=== PATIENT | male | born 1960 | race Caucasian/White ===

== ENCOUNTER 2022-07-03 15:19 | Inpatient (IN) | payer MEDICARE, OTHER, SELFPAY ==
--- NOTE | ~2022-07-03 | US_ITS ---
EXAMINATION: US ABDOMEN LIMITED CLINICAL INFORMATION: Right upper quadrant pain. COMPARISON: None available. TECHNIQUE: Real-time imaging of the right upper quadrant abdominal viscera. FINDINGS: PANCREAS: Not visualized due to shadowing from overlying bowel gas. LIVER: Cirrhotic liver. There is a 0.6 cm simple cyst in the right hepatic lobe. No other discrete focal liver lesion. No significant intrahepatic biliary ductal dilatation. GALLBLADDER: Cholecystectomy. COMMON BILE DUCT: Mildly dilated measuring up to 0.7 cm, nonspecific given patient's age and post cholecystectomy state. RIGHT KIDNEY: There is a 0.5 cm nonobstructive calculus in the mid pole. No hydronephrosis or focal parenchymal lesions. The kidney measures 12 cm in maximum dimension. FREE FLUID: Moderate volume of ascites. US/US abdomen limited IMPRESSION: 1. Cirrhotic liver with moderate volume of ascites. 2. Nonobstructive 0.5 cm calculus in the mid pole of the right kidney. 3. Status post cholecystectomy.
--- NOTE | ~2022-07-03 | CT_ITS ---
EXAMINATION: CT CHEST, ABDOMEN AND PELVIS WITH CONTRAST CLINICAL INFORMATION: Shortness of breath, abdominal distention and jaundice COMPARISON: No pertinent prior studies are available for comparison. TECHNIQUE: Multidetector volumetric imaging was performed from the thoracic inlet through the pubic symphysis following administration of 85 mL of Omnipaque 350. Sagittal and coronal reformatted images were obtained on the technologist's workstation. This CT examination was performed using dose optimization techniques as appropriate, variously including the following: *Automated exposure control *Adjustment of mA and/or kV according to patient size (this includes techniques or standardized protocols for targeted exams where dose is matched to indication/reason for exam; i.e. extremities or head) *Use of iterative reconstruction technique DLP: 966 mGy-cm FINDINGS: CHEST: Lung: There is a cluster of groundglass opacity is seen in the right upper lobe the largest measuring 1.8 cm in greatest length with another adjacent opacity measuring about 0.8 cm. The lungs are otherwise clear aside from some right basilar atelectasis. Mediastinum: The mediastinum is unremarkable. Some small mediastinal lymph nodes are present the largest measuring 0.8 cm in short axis dimension. There is a single posterior paracardiac node present measuring 1.7 x 0.8 x 0.8 cm. A 0.6 cm short axis left anterior paracardiac lymph node is present. The central vascular structures are unremarkable. No hilar or mediastinal lymphadenopathy. Pericardium/Pleura: No significant effusion. No pleural mass or thickening. Chest Wall/Axilla: There is mild gynecomastia. No axillary adenopathy. ABDOMEN/PELVIS: Peritoneal Space: Moderate ascites is noted throughout the abdomen. There is stranding seen in the mesentery and omentum without discrete masses. Fluid is present in the retroperitoneum as well with a small amount around the pancreas. Fluid is present in the paracolic gutters. Liver, Gallbladder, Biliary Tree: Liver is cirrhotic in appearance with a nodular border. A few subcentimeter benign hepatic cysts are present. No suspicious liver masses or bile duct dilatation is seen. Status post cholecystectomy. Pancreas: Unremarkable Spleen: Spleen is enlarged at 14.3 cm. Adrenal Glands: Unremarkable Kidneys and Ureters: The kidneys are normal in size, shape, and attenuation. Bilateral nephrolithiasis is present with 2 calculi present in the right kidney measuring 5 and 2 mm. A single left-sided calculus present 8 mm. The latter calculus measures 860 Hounsfield units and is 10 cm from the posterior axillary line. No hydronephrosis, hydroureter, or ureteral calculi seen. There is a tiny subcentimeter hypodensity seen at the lower pole of the left kidney likely a benign Bosniak class I cyst. No need for additional imaging or follow-up.. Bladder: Unremarkable Gastrointestinal Tract: Colonic diverticula are present but there is no definitive evidence of diverticulitis. Assessment is difficult because of the surrounding fluid and some inflammatory change in the retroperitoneal fat. No bowel obstruction. The appendix is not seen with certainty but there is no evidence of appendicitis appendicitis.. Abdominal Wall: No significant hernia is appreciated. Lymph Nodes: No retroperitoneal lymphadenopathy. Vascular: The aorta appears normal.. The IVC appears unremarkable. No large varices are seen. There is recanalization of a tiny periumbilical vein. There is some tiny serpiginous venous structures seen surrounding the midportion of the inferior mesenteric vein. Some small perirectal varices are present. PELVIC VISCERA: The prostate and seminal vesicles are unremarkable. OSSEUS STRUCTURES: Mild degenerative changes are noted in the spine. There is mild grade 1 retrolisthesis of L5 upon S1. No bony destructive lesions are seen. CT/CT abdomen pelvis w IV con IMPRESSION: 1. There is a cluster of groundglass opacities in the right upper lobe. These could be infectious or inflammatory. 2. Cirrhotic-appearing liver with associated splenomegaly and moderate ascites. 3. Bilateral nephrolithiasis. 4. Colonic diverticulosis without diverticulitis. 5. Other incidental findings as described above. Fleischner guidelines were followed.
[2022-07-03 15:21] VITALS: BP 104/58; PULSE 94; RESP 18; TEMP 35.8; O2SAT 97; BMI 26.7
--- NOTE | 2022-07-03 15:23 | ED.GENADULT ---
HPI - General Adult General Chief complaint: Recheck/Abnormal Lab/Rx <YRN Hairston - Last Filed: 07/03/22 15:26> Stated complaint: Abnormal labs <YRN Hairston - Last Filed: 07/03/22 15:26> Time Seen by Provider: 07/03/22 16:04 <YRN Hairston - Last Filed: 07/03/22 15:26> Source: patient <YRN Crowell - Last Filed: 07/03/22 19:10> Mode of arrival: ambulatory <YRN Crowell - Last Filed: 07/03/22 19:10> Limitations: no limitations <YRN Crowell Last Filed: 07/03/22 19:10> History of Present Illness HPI narrative: This is a 62-year-old male history of cirrhosis, jaundice, presenting to the emergency department with fatigue, malaise, patient is also coming in for abnormal labs according to patient he had labs done on Wednesday which resulted today which showed a low hemoglobin and hematocrit per his PCP. He was advised to come in for a blood transfusion. His hemoglobin was 7.7 hematocrit 24. 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 He tells me he stopped drinking 2 weeks ago, prior to this he is drinking from 10-16 beers per day. He also mentions that his abdomen has been more distended than usual and he has been having dark black stools darker than usual. Patient does take iron transfusion so he is unsure if his stool is dark because of this. Patient reporting some shortness of breath at rest and with exertion but he also is reporting a dry cough. Denies chest pain, fevers, chills, nausea, vomiting, abdominal pain, headache, vision changes, dizziness and weakness. <YRN Crowell - Last Filed: 07/03/22 19:10> Related Data Home medications: Home Medications Medication Instructions Recorded Confirmed ferrous sulfate 325 mg (65 mg 325 mg PO DAILY 07/03/22 07/03/22 iron) tablet folic acid 1 mg tablet 1 mg PO DAILY 07/03/22 07/03/22 levofloxacin 500 mg tablet 500 mg PO DAILY 07/03/22 07/03/22 metronidazole 500 mg tablet 500 mg PO Q8H 07/03/22 07/03/22 multivitamin 1 tab PO DAILY 07/03/22 07/03/22 pantoprazole 40 mg tablet,delayed 40 mg PO Q12H 07/03/22 07/03/22 release polyethylene glycol 3350 17 17 g PO DAILY 07/03/22 07/03/22 gram/dose oral powder (ClearLax) pyridoxine (vitamin B6) 50 mg 50 mg PO DAILY 07/03/22 07/03/22 tablet sennosides 8.6 mg-docusate sodium 1 tab-cap PO BID PRN Constipation 07/03/22 07/03/22 50 mg tablet sitagliptin phosphate 50 mg tablet 50 mg PO DAILY 07/03/22 07/03/22 (Januvia) sucralfate 1 gram tablet 1 g PO TID 07/03/22 07/03/22 thiamine HCl (vitamin B1) 100 mg 100 mg PO DAILY 07/03/22 07/03/22 tablet <YRN Hairston - Last Filed: 07/03/22 15:26> Allergies/adverse reactions: Allergies Allergy/AdvReac Type Severity Reaction Status Date / Time No Known Allergies Allergy Verified 07/03/22 15:25 <YRN Hairston - Last Filed: 07/03/22 15:26> Review of Systems Review of Systems: Constitutional : No Weight loss, No Fever, No Chills, + Fatigue, + Malaise ENT/Mouth : No sore throat, No Rhinorrhea Eyes: No Eye Pain, No Swelling, No Redness Cardiovascular : No Chest Pain, No SOB, No Dyspnea on Exertion, No Orthopnea, No Edema, No Palpitations Respiratory : + Cough, No Sputum, No Wheezing Gastrointestinal : No Nausea, No Vomiting, No Diarrhea, No Constipation, No abdominal Pain, No Hematochezia, + Melena, + abdominal distention Genitourinary : No Dysuria, No Urinary Frequency, No Hematuria, Musculoskeletal : No joint pain, No Myalgias, No Joint Swelling Skin : No Skin Lesions, No rash Neuro : No Weakness, No Numbness, No Dizziness, No Headache Psych : No Anxiety/Panic, No Depression Heme/Lymph: No Bruising, No Bleeding,No Lymphadenopathy Endocrine : No Polyuria, No Polydipsia All other systems reviewed and are negative <YRN Crowell Last Filed: 07/03/22 19:10> Yes all other systems are reviewed and are negative <YRN Crowell Last Filed: 07/03/22 19:10> [facility]LY [facility] Social History Social History: Social History Advance Directives: No Advance Directives Information Provided: No <YRN Hairston Last Filed: 07/03/22 15:26> Physical Exam ED Vital Signs: Vital Signs - 24 hr 07/03/22 15:21 Temperature 96.4 F L Pulse Rate 94 Respiratory Rate 18 Blood Pressure 104/58 L Pulse Oximetry 97 Oxygen Delivery Method Room Air BMI result Body Mass Index 26.7 <YRN Hairston Last Filed: 07/03/22 15:26> Vital Signs - 24 hr 07/03/22 15:21 Temperature 96.4 F L Pulse Rate 94 Respiratory Rate 18 Blood Pressure 104/58 L Pulse Oximetry 97 Oxygen Delivery Method Room Air BMI result Body Mass Index 26.7 Patient is noted to be slightly hypotensive likely secondary to acute blood loss <YRN Crowell Last Filed: 07/03/22 19:10> Appearance: Alert.? Oriented X3.? No acute distress.? Head: Normocephalic, atraumatic, no step-offs or deformities Eyes: Pupils equal, round and reactive to light.? Bilateral sclera icteric ENT: Pharynx normal.? Neck: Normal inspection.? Neck supple.? CVS: Normal heart rate and rhythm.? Pulses normal.? Respiratory: No respiratory distress.? Breath sounds normal.? Abdomen: Soft and nontender. Evidently distended abdomen appears to have ascites? Skin: Skin warm and dry.? Jaundiced skin throughout..? Normal skin turgor.? Extremities: No lower extremity edema.? No calf ttp. 5/5 strength to bilateral upper and lower extremities Back: No midline tenderness, no C-spine tenderness, full range of motion, no CVA tenderness bilaterally Neuro: Oriented X 3.? No motor deficit.? No sensory deficit. CN 2-12 intact <YRN Crowell Last Filed: 07/03/22 19:10> Course Course Course Narrative: RME performed by Gala Ribera PA-C. Patient is a 62 year old assigned male at presenting to the emergency department with a low hgb and worsening cirrhosis. Patient's hgb 7.7 with a hct of 24. Patient has not seen a GI specialist for his cirrhosis yet. Patient obviously jaundice. Labs ordered. Patient placed back in the waiting room pending room availability and results. <YRN Hairston - Last Filed: 07/03/22 15:26> Reevaluation(s) Reevaluation #1: Patient's CBC with a hemoglobin of 7.6, hematocrit 23.3, noted to have a macrocytic anemia likely secondary to chronic alcohol abuse, patient having symptomatic anemia an active bleeding will transfuse with 1 unit of packed red blood. Patient's platelets are 80. Chemistry with elevated glucose 388 will receive IV fluids. Total bilirubin, and transaminases elevated as well. I do not have previous values to compare with. Ammonia 88, lactulose ordered. OBS positive, consistent with acute lower GI bleed. Patient also noted to be COVID positive. Patient's ultrasound of the abdomen with cirrhotic liver with moderate volume of ascites, patient does not have abdominal tenderness unlikely SBP. CT of chest, abdomen and pelvis pending. Plan is for hospital admission. <YRN Crowell - Last Filed: 07/03/22 19:10> Time: 19:04 <YRN Crowell - Last Filed: 07/03/22 19:10> Reevaluation #2: Hospitalist aware of pending CT scans. Plan for admission. <YRN Crowell - Last Filed: 07/03/22 19:10> Medications Administered Discontinued Medications Generic Name Dose Route Start Last Admin Trade Name Freq PRN Reason Stop Dose Admin Iohexol 100 ml 07/03/22 18:12 07/03/22 18:14 Iohexol 350 Mg/Ml 100 Ml Infus..Btl IV 07/03/22 18:13 85 ml ONCE ONE Administration Lactulose 20 gm 07/03/22 17:54 07/03/22 18:47 Lactulose 20 Gm/30 Ml Solution PO 07/03/22 17:55 20 gm ONCE ONE Administration <YRN Hairston - Last Filed: 07/03/22 15:26> Medications Administered Discontinued Medications Generic Name Dose Route Start Last Admin Trade Name Freq PRN Reason Stop Dose Admin Iohexol 100 ml 07/03/22 18:12 07/03/22 18:14 Iohexol 350 Mg/Ml 100 Ml Infus..Btl IV 07/03/22 18:13 85 ml ONCE ONE Administration Lactulose 20 gm 07/03/22 17:54 07/03/22 18:47 Lactulose 20 Gm/30 Ml Solution PO 07/03/22 17:55 20 gm ONCE ONE Administration <YRN Crowell Last Filed: 07/03/22 19:10> Medical Decision Making Medical Decision Making [facility] Narrative: 1615 62-year-old male presents with abnormal labs with low hemoglobin hematocrit per PCP also reporting fatigue, malaise, dry cough, shortness of breath times a few weeks worsening Physical exam patient has regular rate and rhythm, lungs are clear, abdomen soft, evidently distended appears to have some ascites, normoactive bowel sounds. Diffuse jaundice from head to toe, sclerae icteric Patient's fatigue, malaise and shortness of breath or likely secondary to acute blood loss anemia. Will rule out lower GI bleed. Patient at high risk for lower GI bleed as he is cirrhotic. Jaundice likely secondary to cirrhosis. I do not suspect CHF, acute abdomen, SBP, mi, PE. Will rule out dehydration and electrolyte abnormalities. Hypotension likely secondary to acute blood loss/anemia on likely from sepsis. Plan labs, imaging, x-ray, OBS <YRN Crowell Last Filed: 07/03/22 19:10> Differential Diagnosis Differential Diagnoses: The differential diagnosis associated with the presentation includes <YRN Crowell Last Filed: 07/03/22 19:10> Patient's fatigue, malaise and shortness of breath or likely secondary to acute blood loss anemia. Will rule out lower GI bleed. Patient at high risk for lower GI bleed as he is cirrhotic. Jaundice likely secondary to cirrhosis. I do not suspect CHF, acute abdomen, SBP, mi, PE. Will rule out dehydration and electrolyte abnormalities. Hypotension likely secondary to acute blood loss/anemia on likely from sepsis. <YRN Crowell Last Filed: 07/03/22 19:10> Admission/Observation Consideration of admission/observation: Escalation of care including admission/observation considered <YRN Crowell Last Filed: 07/03/22 19:10> nayely <YRN Crowell - Last Filed: 07/03/22 19:10> Lab Data MDM Lab Attestation statement: I reviewed the patient's lab results. <YRN Crowell - Last Filed: 07/03/22 19:10> Result Diagrams: 07/03/22 16:08 07/03/22 16:49 <YRN Hairston - Last Filed: 07/03/22 15:26> Labs: Lab Results 07/03/22 07/03/22 07/03/22 Range/Units 15:56 15:57 16:08 WBC 5.4 (4.8-10.8) X10*3/uL RBC 2.14 L (4.60-5.80) X10*6/uL Hgb 7.6 L (14.0-18.0) g/dl Hct 23.3 L (42.0-52.0) % MCV 108.9 H (80.0-98.0) fL MCH 35.5 H (27.0-33.0) pg MCHC 32.6 (31.0-36.0) g/dl RDW 27.1 H (11.0-16.0) % Plt Count 80 L (160-400) X10*3/uL MPV 10.6 (9.4-12.4) fL Immature Gran % (Auto) 0.6 H (0.0-0.4) % Neut % (Auto) 47.2 (45-73) % Lymph % (Auto) 37.4 (20-40) % Tucker % (Auto) 10.6 (2-11) % Eos % (Auto) 3.3 (0-4) % Baso % (Auto) 0.9 (0-2) % Lymph # (Auto) 2.0 (1.2-4.9) X10*3/uL Tucker # (Auto) 0.6 (0.1-1.2) X10*3/uL Eos # (Auto) 0.2 (0.0-0.4) X10*3/uL Baso # (Auto) 0.1 (0.0-0.2) X10*3/uL Abs Immat Gran (auto) 0.03 (0.00-0.03) X10*3/uL Absolute Neuts (auto) 2.5 (2.0-8.3) x10*3/uL Absolute Nucleated RBC 0.000 (0.0-0.012) X10*3/uL Nucleated RBC % (auto) 0.0 (0.0-0.2) /100WBC PT (10.0-13.1) SEC INR (0.9-1.1) APTT (26.0-36.4) SEC Sodium (135-145) mmol/L Potassium (3.3-5.1) mmol/L Chloride (96-108) mmol/L Carbon Dioxide (22-29) mmol/L Anion Gap (12-20) BUN (9-16) mg/dL Creatinine (0.5-1.4) mg/dL Estim Creat Clear Calc Estimated GFR Random Glucose (60-115) mg/dL Calcium (8.4-10.2) mg/dL Magnesium (1.6-2.6) mg/dL Total Bilirubin (0.0-1.0) mg/dL AST (5-37) U/L ALT (0-40) U/L Alkaline Phosphatase (39-117) U/L Ammonia 88 H (13-55) umol/L Total Protein (6.5-8.0) g/dL Albumin (3.5-5.0) g/dL Stool Occult Blood (NEGATIVE) COVID-19 (HAROLDO) (Negative) COVID-19 Clin [facility] Blood Type O Positive Antibody Screen NEGATIVE 07/03/22 07/03/22 07/03/22 Range/Units 16:49 16:49 16:49 WBC (4.8-10.8) X10*3/uL RBC (4.60-5.80) X10*6/uL Hgb (14.0-18.0) g/dl Hct (42.0-52.0) % MCV (80.0-98.0) fL MCH (27.0-33.0) pg MCHC (31.0-36.0) g/dl RDW (11.0-16.0) % Plt Count (160-400) X10*3/uL MPV (9.4-12.4) fL Immature Gran % (Auto) (0.0-0.4) % Neut % (Auto) (45-73) % Lymph % (Auto) (20-40) % Tucker % (Auto) (2-11) % Eos % (Auto) (0-4) % Baso % (Auto) (0-2) % Lymph # (Auto) (1.2-4.9) X10*3/uL Tucker # (Auto) (0.1-1.2) X10*3/uL Eos # (Auto) (0.0-0.4) X10*3/uL Baso # (Auto) (0.0-0.2) X10*3/uL Abs Immat Gran (auto) (0.00-0.03) X10*3/uL Absolute Neuts (auto) (2.0-8.3) x10*3/uL Absolute Nucleated RBC (0.0-0.012) X10*3/uL Nucleated RBC % (auto) (0.0-0.2) /100WBC PT 20.3 H (10.0-13.1) SEC INR 1.7 H (0.9-1.1) APTT 36.0 (26.0-36.4) SEC Sodium 137 (135-145) mmol/L Potassium 3.7 (3.3-5.1) mmol/L Chloride 106 (96-108) mmol/L Carbon Dioxide 23 (22-29) mmol/L Anion Gap 12 (12-20) BUN 12 (9-16) mg/dL Creatinine 0.84 (0.5-1.4) mg/dL Estim Creat Clear Calc 88.8 Estimated GFR > 60 Random Glucose 388 H* (60-115) mg/dL Calcium 8.5 (8.4-10.2) mg/dL Magnesium 1.9 (1.6-2.6) mg/dL Total Bilirubin 9.5 H (0.0-1.0) mg/dL AST 86 H (5-37) U/L ALT 43 H (0-40) U/L Alkaline Phosphatase 93 (39-117) U/L Ammonia (13-55) umol/L Total Protein 6.9 (6.5-8.0) g/dL Albumin 2.4 L (3.5-5.0) g/dL Stool Occult Blood (NEGATIVE) COVID-19 (HAROLDO) Positive A (Negative) COVID-19 Clin Com See Note Blood Type Antibody Screen 07/03/22 Range/Units 18:00 WBC (4.8-10.8) X10*3/uL RBC (4.60-5.80) X10*6/uL Hgb (14.0-18.0) g/dl Hct (42.0-52.0) % MCV (80.0-98.0) fL MCH (27.0-33.0) pg MCHC (31.0-36.0) g/dl RDW (11.0-16.0) % Plt Count (160-400) X10*3/uL MPV (9.4-12.4) fL Immature Gran % (Auto) (0.0-0.4) % Neut % (Auto) (45-73) % Lymph % (Auto) (20-40) % Tucker % (Auto) (2-11) % Eos % (Auto) (0-4) % Baso % (Auto) (0-2) % Lymph # (Auto) (1.2-4.9) X10*3/uL Tucker # (Auto) (0.1-1.2) X10*3/uL Eos # (Auto) (0.0-0.4) X10*3/uL Baso # (Auto) (0.0-0.2) X10*3/uL Abs Immat Gran (auto) (0.00-0.03) X10*3/uL Absolute Neuts (auto) (2.0-8.3) x10*3/uL Absolute Nucleated RBC (0.0-0.012) X10*3/uL Nucleated RBC % (auto) (0.0-0.2) /100WBC PT (10.0-13.1) SEC INR (0.9-1.1) APTT (26.0-36.4) SEC Sodium (135-145) mmol/L Potassium (3.3-5.1) mmol/L Chloride (96-108) mmol/L Carbon Dioxide (22-29) mmol/L Anion Gap (12-20) BUN (9-16) mg/dL Creatinine (0.5-1.4) mg/dL Estim Creat Clear Calc Estimated GFR Random Glucose (60-115) mg/dL Calcium (8.4-10.2) mg/dL Magnesium (1.6-2.6) mg/dL Total Bilirubin (0.0-1.0) mg/dL AST (5-37) U/L ALT (0-40) U/L Alkaline Phosphatase (39-117) U/L Ammonia (13-55) umol/L Total Protein (6.5-8.0) g/dL Albumin (3.5-5.0) g/dL Stool Occult Blood POSITIVE (NEGATIVE) COVID-19 (HAROLDO) (Negative) COVID-19 Clin Com Blood Type Antibody Screen <YRN Hairston - Last Filed: 07/03/22 15:26> Lab Results 07/03/22 07/03/22 07/03/22 Range/Units 15:56 15:57 16:08 WBC 5.4 (4.8-10.8) X10*3/uL RBC 2.14 L (4.60-5.80) X10*6/uL Hgb 7.6 L (14.0-18.0) g/dl Hct 23.3 L (42.0-52.0) % MCV 108.9 H (80.0-98.0) fL MCH 35.5 H (27.0-33.0) pg MCHC 32.6 (31.0-36.0) g/dl RDW 27.1 H (11.0-16.0) % Plt Count 80 L (160-400) X10*3/uL MPV 10.6 (9.4-12.4) fL Immature Gran % (Auto) 0.6 H (0.0-0.4) % Neut % (Auto) 47.2 (45-73) % Lymph % (Auto) 37.4 (20-40) % Tucker % (Auto) 10.6 (2-11) % Eos % (Auto) 3.3 (0-4) % Baso % (Auto) 0.9 (0-2) % Lymph # (Auto) 2.0 (1.2-4.9) X10*3/uL Tucker # (Auto) 0.6 (0.1-1.2) X10*3/uL Eos # (Auto) 0.2 (0.0-0.4) X10*3/uL Baso # (Auto) 0.1 (0.0-0.2) X10*3/uL Abs Immat Gran (auto) 0.03 (0.00-0.03) X10*3/uL Absolute Neuts (auto) 2.5 (2.0-8.3) x10*3/uL Absolute Nucleated RBC 0.000 (0.0-0.012) X10*3/uL Nucleated RBC % (auto) 0.0 (0.0-0.2) /100WBC PT (10.0-13.1) SEC INR (0.9-1.1) APTT (26.0-36.4) SEC Sodium (135-145) mmol/L Potassium (3.3-5.1) mmol/L Chloride (96-108) mmol/L Carbon Dioxide (22-29) mmol/L Anion Gap (12-20) BUN (9-16) mg/dL Creatinine (0.5-1.4) mg/dL Estim Creat Clear Calc Estimated GFR Random Glucose (60-115) mg/dL Calcium (8.4-10.2) mg/dL Magnesium (1.6-2.6) mg/dL Total Bilirubin (0.0-1.0) mg/dL AST (5-37) U/L ALT (0-40) U/L Alkaline Phosphatase (39-117) U/L Ammonia 88 H (13-55) umol/L Total Protein (6.5-8.0) g/dL Albumin (3.5-5.0) g/dL Stool Occult Blood (NEGATIVE) COVID-19 (HAROLDO) (Negative) COVID-19 Clin Com Blood Type O Positive Antibody Screen NEGATIVE 07/03/22 07/03/22 07/03/22 Range/Units 16:49 16:49 16:49 WBC (4.8-10.8) X10*3/uL RBC (4.60-5.80) X10*6/uL Hgb (14.0-18.0) g/dl Hct (42.0-52.0) % MCV (80.0-98.0) fL MCH (27.0-33.0) pg MCHC (31.0-36.0) g/dl RDW (11.0-16.0) % Plt Count (160-400) X10*3/uL MPV (9.4-12.4) fL Immature Gran % (Auto) (0.0-0.4) % Neut % (Auto) (45-73) % Lymph % (Auto) (20-40) % Tucker % (Auto) (2-11) % Eos % (Auto) (0-4) % Baso % (Auto) (0-2) % Lymph # (Auto) (1.2-4.9) X10*3/uL Tucker # (Auto) (0.1-1.2) X10*3/uL Eos # (Auto) (0.0-0.4) X10*3/uL Baso # (Auto) (0.0-0.2) X10*3/uL Abs Immat Gran (auto) (0.00-0.03) X10*3/uL Absolute Neuts (auto) (2.0-8.3) x10*3/uL Absolute Nucleated RBC (0.0-0.012) X10*3/uL Nucleated RBC % (auto) (0.0-0.2) /100WBC PT 20.3 H (10.0-13.1) SEC INR 1.7 H (0.9-1.1) APTT 36.0 (26.0-36.4) SEC Sodium 137 (135-145) mmol/L Potassium 3.7 (3.3-5.1) mmol/L Chloride 106 (96-108) mmol/L Carbon Dioxide 23 (22-29) mmol/L Anion Gap 12 (12-20) BUN 12 (9-16) mg/dL Creatinine 0.84 (0.5-1.4) mg/dL Estim Creat Clear Calc 88.8 Estimated GFR > 60 Random Glucose 388 H* (60-115) mg/dL Calcium 8.5 (8.4-10.2) mg/dL Magnesium 1.9 (1.6-2.6) mg/dL Total Bilirubin 9.5 H (0.0-1.0) mg/dL AST 86 H (5-37) U/L ALT 43 H (0-40) U/L Alkaline Phosphatase 93 (39-117) U/L Ammonia (13-55) umol/L Total Protein 6.9 (6.5-8.0) g/dL Albumin 2.4 L (3.5-5.0) g/dL Stool Occult Blood (NEGATIVE) COVID-19 (HAROLDO) Positive A (Negative) COVID-19 Clin Com See Note Blood Type Antibody Screen 07/03/22 Range/Units 18:00 WBC (4.8-10.8) X10*3/uL RBC (4.60-5.80) X10*6/uL Hgb (14.0-18.0) g/dl Hct (42.0-52.0) % MCV (80.0-98.0) fL MCH (27.0-33.0) pg MCHC (31.0-36.0) g/dl RDW (11.0-16.0) % Plt Count (160-400) X10*3/uL MPV (9.4-12.4) fL Immature Gran % (Auto) (0.0-0.4) % Neut % (Auto) (45-73) % Lymph % (Auto) (20-40) % Tucker % (Auto) (2-11) % Eos % (Auto) (0-4) % Baso % (Auto) (0-2) % Lymph # (Auto) (1.2-4.9) X10*3/uL Tucker # (Auto) (0.1-1.2) X10*3/uL Eos # (Auto) (0.0-0.4) X10*3/uL Baso # (Auto) (0.0-0.2) X10*3/uL Abs Immat Gran (auto) (0.00-0.03) X10*3/uL Absolute Neuts (auto) (2.0-8.3) x10*3/uL Absolute Nucleated RBC (0.0-0.012) X10*3/uL Nucleated RBC % (auto) (0.0-0.2) /100WBC PT (10.0-13.1) SEC INR (0.9-1.1) APTT (26.0-36.4) SEC Sodium (135-145) mmol/L Potassium (3.3-5.1) mmol/L Chloride (96-108) mmol/L Carbon Dioxide (22-29) mmol/L Anion Gap (12-20) BUN (9-16) mg/dL Creatinine (0.5-1.4) mg/dL Estim Creat Clear Calc Estimated GFR Random Glucose (60-115) mg/dL Calcium (8.4-10.2) mg/dL Magnesium (1.6-2.6) mg/dL Total Bilirubin (0.0-1.0) mg/dL AST (5-37) U/L ALT (0-40) U/L Alkaline Phosphatase (39-117) U/L Ammonia (13-55) umol/L Total Protein (6.5-8.0) g/dL Albumin (3.5-5.0) g/dL Stool Occult Blood POSITIVE (NEGATIVE) COVID-19 (HAROLDO) (Negative) COVID-19 Clin Com Blood Type Antibody Screen <YRN Crowell - Last Filed: 07/03/22 19:10> Independent Interpretation I performed an independent interpretation of an: Plain X-Ray and CT Scan <YRN Crowell - Last Filed: 07/03/22 19:10> Radiology Impression Discussion of test interpretation with radiology: I have reviewed the radiologist's reading. <YRN Crowell Last Filed: 07/03/22 19:10> External Record Review External record reviewed: Inpatient record, Office record, Outpatient record, Prior outpatient labs, Prior outpatient radiology, Primary care record and Outside ED record <YRN Crowell Last Filed: 07/03/22 19:10> Core Measures AMI core measures followed: Yes <YRN Crowell Last Filed: 07/03/22 19:10> Measure exclusions: not indicated <YRN Crowell Last Filed: 07/03/22 19:10> Critical Care Time Critical Care Time Critical Care Time: Yes <YRN Crowell Last Filed: 07/03/22 19:10> Total Critical Care Time: 45 <YRN Crowell - Last Filed: 07/03/22 19:10> Attestation: I attest to this time spent taking care of the patient, obtaining history, physical, reviewing labs, imaging, speaking to my attending, speaking to specialist. <YRN Crowell - Last Filed: 07/03/22 19:10> Discharge Plan Discharge Clinical Impression: Cirrhosis of liver, Ascites, Anemia, Acute lower GI bleeding <YRN Hairston - Last Filed: 07/03/22 15:26> Patient Disposition: Admitted As Inpatient <YRN Hairston - Last Filed: 07/03/22 15:26>
[2022-07-03 16:21] LABS: Ammonia 88 umol/L (13-55)
[2022-07-03 16:21] LABS: MANUAL DIFF FLAG NO
[2022-07-03 16:26] LABS: Basophils Absolute Auto 0.1 X10*3/uL (0.0-0.2); Basophils Percent Auto 0.9 % (0-2); Eosinophils Absolute Auto 0.2 X10*3/uL (0.0-0.4); Eosinophils Percent Auto 3.3 % (0-4); Hematocrit 23.3 % (42.0-52.0); Hemoglobin 7.6 g/dl (14.0-18.0); Imm Gran Abs Auto 0.03 X10*3/uL (0.00-0.03); Imm Gran Pct Auto 0.6 % (0.0-0.4); Lymphocytes Percent Auto 37.4 % (20-40); Mean Corpuscular HGB Conc 32.6 g/dl (31.0-36.0); Mean Corpuscular Hemoglobin 35.5 pg (27.0-33.0); Mean Corpuscular Volume 108.9 fL (80.0-98.0); Mean Platelet Volume 10.6 fL (9.4-12.4); Monocytes Absolute Auto 0.6 X10*3/uL (0.1-1.2); Monocytes Percent Auto 10.6 % (2-11); Neutrophils Absolute Auto 2.5 x10*3/uL (2.0-8.3); Neutrophils Percent Auto 47.2 % (45-73); Red Blood Count 2.14 X10*6/uL (4.60-5.80); Red Cell Distribution Width 27.1 % (11.0-16.0); White Blood Count 5.4 X10*3/uL (4.8-10.8)
[2022-07-03 16:46] LABS: Platelet Count 80 X10*3/uL (160-400)
[2022-07-03 17:04] LABS: INTERNATIONAL NORM RATIO 1.7 (0.9-1.1); Prothrombin Time 20.3 SEC (10.0-13.1)
[2022-07-03 17:12] LABS: COVID-19 Test Positive (Negative); IDNOW Serial# 6674DD1D
[2022-07-03 17:25] LABS: Alanine Aminotransferase 43 U/L (0-40); Albumin Level 2.4 g/dL (3.5-5.0); Alkaline Phosphatase 93 U/L (39-117); Anion Gap 12 (12-20); Aspartate Amino Transferase 86 U/L (5-37); Bilirubin Total 9.5 mg/dL (0.0-1.0); Blood Urea Nitrogen 12 mg/dL (9-16); Calcium 8.5 mg/dL (8.4-10.2); Carbon Dioxide 23 mmol/L (22-29); Chloride 106 mmol/L (96-108); Creatinine Clr Calc Pharmacy 88.8; Estimated Glomerular Filt Rate > 60; Glucose Random 388 mg/dL (60-115); Magnesium 1.9 mg/dL (1.6-2.6); Potassium 3.7 mmol/L (3.3-5.1); Sodium 137 mmol/L (135-145); Total Protein 6.9 g/dL (6.5-8.0)
--- NOTE | 2022-07-03 17:55 | PHA.MEDREC ---
Pharmacy Consult ? Medication Reconciliation Pharmacy has completed the medication reconciliation. Patients had a list.
[2022-07-03] MEDS: iohexoL 350 MG/ML 100 ML INFUS..BTL IV (18:14)
[2022-07-03 18:19] LABS: OBS Int Ctl Valid YES; OBS1 POSITIVE (NEGATIVE)
[2022-07-03] MEDS: Lactulose 20 GM/30 ML SOLUTION PO ×2 (18:47→20:45)
--- NOTE | 2022-07-03 19:24 | PM.IMHP ---
History of Present Illness Date of Service: 07/03/22 Attending physician on admission: Merna Hernandez Chief Complaint: Anemia Pt is a 62-year-old male with a PMH significant for?cirrhosis, jaundice, and alcohol use disorder who presents to the ED after labs drawn by PCP showed anemia and need for blood transfusion. Patient states that symptoms began approximately 3 weeks ago when he went to [place] to visit friends. Patient has been a chronic heavy drinker for many years, drinking 10-15 beers daily. In [place] notes he drink even more, hitting up the [email or web address] bars. Said felt off the last two days, weak and fatigued, spent most of the time in his hotel room. Went to see his PCP upon getting home, and was sent via ambulance to [facility] for jaundice. Pt says he stayed at [facility] for five days and was diagnosed with cirrhosis, transfused two units of PRBC, had an EGD which cauterized some bleeding ulcers, and had fluid drawn off his liver. Pt had apparently been experiencing bright red blood per rectum for up to 6 months prior which he thought was due to hemorrhoids, even though he had never had a formal diagnosis. Patient has also been experiencing dark stools, though he is on iron supplementation and has not experienced any bright red blood since the procedure at [facility]. Pt also developed a cough two days after leaving [facility]. In the ED patient was hypotensive at 104/58. Labs were significant for macrocytic anemia of 7.6/23.3, MCV 108.9, platelets of 80, PTT of 20.3, INR of 1.7, random glucose of 388, total bilirubin of 9.5, AST of 86, ALT 43, ammonia 88. Stools positive for occult blood. Patient tested positive for COVID-19. Abdominal ultrasound showed cirrhotic liver with moderate volume of ascites and nonobstructive 0.5 cm calculus in the right kidney. CT of chest, abdomen, and pelvis showed a cluster of ground-glass opacities in the right upper lobe that could be infectious or inflammatory, a cirrhotic appearing liver with associated splenomegaly and moderate ascites, bilateral nephrolithiasis, and colonic diverticulosis without diverticulitis. Pt was treated with lactulose, thiamine, and IVF. Pt will be admitted to the hospital for treatment of hepatic encephalopathy, acute decompensated cirrhosis, and acute GI bleed. [facility] Social History Advance Directives: No Advance Directives Information Provided: No Meds Allergies Allergy/AdvReac Type Severity Reaction Status Date / Time No Known Allergies Allergy Verified 07/03/22 15:25 Active Medications: Current Medications Benzonatate (Benzonatate 100 Mg Capsule) 200 mg PO TID PRN PRN Reason: cough Glucose (Glucose Gel 15 Gm Gel..Gram.) 15 gm PO Q15M PRN; Protocol PRN Reason: per Hypoglycemia Standing Ord. Sodium Chloride (Ns) 1,000 mls @ 999 mls/hr IV .Q1H1M SABAS Stop: 07/03/22 20:15 Dextrose (D10) 250 mls @ 750 mls/hr IV Q15M PRN; Protocol PRN Reason: per Hypoglycemia Standing Ord. Insulin Human Lispro (Insulin Lispro 100 Unit/Ml 3 Ml Vial) 0 unit SUBCUT Q6H [facility]; Protocol Lactulose (Lactulose 20 Gm/30 Ml Solution) 20 gm PO BID [facility] Melatonin (Melatonin 3 Mg Tablet) 6 mg PO BEDTIME PRN PRN Reason: Insomnia Ondansetron HCl (Ondansetron Hcl 4 Mg/2 Ml Vial) 4 mg IVPUSH Q8H PRN PRN Reason: Nausea and Vomiting Pharmacy Consult (Consult Rx Perform Med Rec) 1 each MISCELLANE ONCE PRN PRN Reason: Consult order Sodium Chloride (0.9 % Sodium Chloride Flush 3 Ml Syringe) 3 ml IVFLUSH QSHIFT [facility] Home Medications Medication Instructions Recorded Confirmed Last Taken Type ferrous sulfate 325 mg (65 mg 325 mg PO DAILY 07/03/22 07/03/22 Unknown History iron) tablet folic acid 1 mg tablet 1 mg PO DAILY 07/03/22 07/03/22 Unknown History levofloxacin 500 mg tablet 500 mg PO DAILY 07/03/22 07/03/22 Unknown History metronidazole 500 mg tablet 500 mg PO Q8H 07/03/22 07/03/22 Unknown History multivitamin 1 tab PO DAILY 07/03/22 07/03/22 Unknown History pantoprazole 40 mg tablet,delayed 40 mg PO Q12H 07/03/22 07/03/22 Unknown History release polyethylene glycol 3350 17 17 g PO DAILY 07/03/22 07/03/22 Unknown History gram/dose oral powder (ClearLax) pyridoxine (vitamin B6) 50 mg 50 mg PO DAILY 07/03/22 07/03/22 Unknown History tablet sennosides 8.6 mg-docusate sodium 1 tab-cap PO BID PRN Constipation 07/03/22 07/03/22 Unknown History 50 mg tablet sitagliptin phosphate 50 mg tablet 50 mg PO DAILY 07/03/22 07/03/22 Unknown History (Januvia) sucralfate 1 gram tablet 1 g PO TID 07/03/22 07/03/22 Unknown History thiamine HCl (vitamin B1) 100 mg 100 mg PO DAILY 07/03/22 07/03/22 Unknown History tablet Physical Exam Vital Signs and Narrative: Vital Signs: Last Vital Signs Temp 96.4 F L 07/03/22 15:21 Pulse 94 07/03/22 15:21 Resp 18 07/03/22 15:21 BP 104/58 L 07/03/22 15:21 Pulse Ox 97 07/03/22 15:21 O2 Del Method Room Air 07/03/22 15:21 BMI result Body Mass Index 26.7 Constitutional: Alert, in no acute distress. Mental Status: Oriented to person, place and time. Eyes: Pupils are equal, round, and reactive to light. Sclera icteric. Ear, Nose, and Throat: Oropharynx clear, mucous membranes moist. Ears and nose without deformities. Trachea midline. Respiratory: Clear to auscultation bilaterally. No wheezing, rales, or rhonchi. Cardiovascular: S1, S2 regular. No murmurs, rubs, or gallops. Gastrointestinal: Abdomen soft, non-tender, moderately rigid and distended. Normal bowel sounds. Neurologic: Cranial nerves II-XII are grossly intact bilaterally. No focal neurological deficits. Moves all extremities spontaneously. Skin: Patient would notable jaundice. Extremities: 1+ pitting edema of lower extremities bilaterally. Psychiatric: Normal mood and affect. Results Labs 07/03/22 16:08 07/03/22 16:49 Labs: Laboratory Results - last 24 hr 07/03/22 07/03/22 07/03/22 15:56 15:57 16:08 MCV 108.9 H MCH 35.5 H MCHC 32.6 RDW 27.1 H Plt Count 80 L MPV 10.6 Immature Gran % (Auto) 0.6 H Neut % (Auto) 47.2 Lymph % (Auto) 37.4 [place] % (Auto) 10.6 Eos % (Auto) 3.3 Baso % (Auto) 0.9 Lymph # (Auto) 2.0 [place] # (Auto) 0.6 Eos # (Auto) 0.2 Baso # (Auto) 0.1 Abs Immat Gran (auto) 0.03 Absolute Neuts (auto) 2.5 Absolute Nucleated RBC 0.000 Nucleated RBC % (auto) 0.0 PT INR APTT Anion Gap Estim Creat Clear Calc Estimated GFR Random Glucose Calcium Magnesium Total Bilirubin AST ALT Alkaline Phosphatase Ammonia 88 H Total Protein Albumin Stool Occult Blood COVID-19 (HAROLDO) COVID-[employer] Blood Type O Positive Antibody Screen NEGATIVE Crossmatch See Detail 07/03/22 07/03/22 07/03/22 16:49 16:49 16:49 MCV MCH MCHC RDW Plt Count MPV Immature Gran % (Auto) Neut % (Auto) Lymph % (Auto) [place] % (Auto) Eos % (Auto) Baso % (Auto) Lymph # (Auto) [place] # (Auto) Eos # (Auto) Baso # (Auto) Abs Immat Gran (auto) Absolute Neuts (auto) Absolute Nucleated RBC Nucleated RBC % (auto) PT 20.3 H INR 1.7 H APTT 36.0 Anion Gap 12 Estim Creat Clear Calc 88.8 Estimated GFR > 60 Random Glucose 388 H* Calcium 8.5 Magnesium 1.9 Total Bilirubin 9.5 H AST 86 H ALT 43 H Alkaline Phosphatase 93 Ammonia Total Protein 6.9 Albumin 2.4 L Stool Occult Blood COVID-19 (HAROLDO) Positive A COVID-19 [employer] See Note Blood Type Antibody Screen Crossmatch 07/03/22 18:00 MCV MCH MCHC RDW Plt Count MPV Immature Gran % (Auto) Neut % (Auto) Lymph % (Auto) [place] % (Auto) Eos % (Auto) Baso % (Auto) Lymph # (Auto) [place] # (Auto) Eos # (Auto) Baso # (Auto) Abs Immat Gran (auto) Absolute Neuts (auto) Absolute Nucleated RBC Nucleated RBC % (auto) PT INR APTT Anion Gap Estim Creat Clear Calc Estimated GFR Random Glucose Calcium Magnesium Total Bilirubin AST ALT Alkaline Phosphatase Ammonia Total Protein Albumin Stool Occult Blood POSITIVE COVID-19 (HAROLDO) COVID-[employer] Blood Type Antibody Screen Crossmatch Imaging Radiologist's Impressions: Impressions Abdomen Ultrasound 07/03/22 18:34 IMPRESSION: 1. Cirrhotic liver with moderate volume of ascites. 2. Nonobstructive 0.5 cm calculus in the mid pole of the right kidney. 3. Status post cholecystectomy. Abdomen/Pelvis CT 07/03/22 18:39 IMPRESSION: 1. There is a cluster of groundglass opacities in the right upper lobe. These could be infectious or inflammatory. 2. Cirrhotic-appearing liver with associated splenomegaly and moderate ascites. 3. Bilateral nephrolithiasis. 4. Colonic diverticulosis without diverticulitis. 5. Other incidental findings as described above. Fleischner guidelines were followed. Chest CT 07/03/22 18:39 IMPRESSION: 1. There is a cluster of groundglass opacities in the right upper lobe. These could be infectious or inflammatory. 2. Cirrhotic-appearing liver with associated splenomegaly and moderate ascites. 3. Bilateral nephrolithiasis. 4. Colonic diverticulosis without diverticulitis. 5. Other incidental findings as described above. Fleischner guidelines were followed. Assessment and Plan (1) Ascites: Status: Acute (2) Anemia: Status: Acute (3) GI bleed: Status: Acute (4) Cirrhosis of liver: Status: Acute Plan Pt is a 62-year-old male with a PMH significant for?cirrhosis, jaundice, and alcohol use disorder who presents to the ED after labs drawn by PCP showed anemia and need for blood transfusion. Pt will be admitted to the hospital for treatment of hepatic encephalopathy, acute decompensated cirrhosis, and acute GI bleed. Acute GI bleed with symptomatic anemia Pt's H&H 7.6 or 23.3, stool positive for occult blood, ?melena IV Protonix Clear liquid diet for now, NPO after midnight in anticipation of possible procedure tomorrow a.m. GI consult Acute decompensated chirrosis Patient with jaundice, elevated bilirubin, AST, & ALT, ascites, 1+ pitting lower leg edema bilaterally Likely secondary to chronic alcohol abuse Thiamine, folic acid, multivitamin Ultrasound-guided paracentesis GI consult Patient strongly encouraged to keep abstaining from alcohol Hepatic encephalopathy Patient's ammonia 88 at time of presentation Likely secondary to GI bleed Lactulose 20 gm po bid with goal of 2-3 bowel movements per day Repeat ammonia in the a.m. COVID Pt tested positive for COVID CT of chest with clustered ground-glass opacities in the right upper lobe Patient largely asymptomatic: Occasional nonproductive cough, no shortness of breath, lungs CTA Treat asymptomatically Benzonatate for cough Admit with contact and airborne precautions Zrk-svmqyft-gioyorvld diabetes Patient's random glucose 388 at time of presentation Continue Jorden POTTS Full Code Attending:?Dr. Hernandez DVT Prophylaxis: Pneumatic boots Pt will require a hospitalization of at least two nights for treatment of?hepatic encephalopathy, decompensated cirrhosis, and acute GI bleed . Time Spent With Patient Time: Total time managing care of this patient today ____ minutes. Quality Stroke Does the patient have a stroke diagnosis?: No VTE Prior VTE?: No VTE Risk Level:: Medical - moderate - high VTE Device Contraindication: N/A - Device Ordered VTE Drug Contraindication: Treatment Not Indicated
--- NOTE | 2022-07-03 19:50 | PC.NURSE ---
Pt ambulatory with standby assist to restroom. Bowel movement x1.
[2022-07-03 19:55] VITALS: BP 112/70; PULSE 89; RESP 17; O2SAT 97
[2022-07-03 19:58] VITALS: BP 122/70; PULSE 90; RESP 17; TEMP 36.6
--- NOTE | 2022-07-03 20:01 | PC.NURSE ---
Blood transfusion initiated at this time
[2022-07-03] MEDS: Thiamine HCL 100 MG in 0.9 % Sodium Chloride 100 ML 202 MG IV (20:07)
[2022-07-03] MEDS: 0.9 % Sodium Chloride 1,000 ML 999 ML IV (20:08)
[2022-07-03 20:16] VITALS: BP 117/63; PULSE 89; RESP 19; TEMP 36.8
--- NOTE | 2022-07-03 20:16 | PC.NURSE ---
Pt tolerating blood transfusion well. VSS.
[2022-07-03] MEDS: Sucralfate 1 GM TABLET PO (20:45)
[2022-07-03 20:49] LABS: Folate 14.4 ng/mL (> or = 4.0)
--- NOTE | 2022-07-03 20:58 | PC.NURSE ---
Pt continues to tolerate blood transfusion well. VSS.
[2022-07-03 21:10] VITALS: BP 139/78; PULSE 86; RESP 17; TEMP 36.7
--- NOTE | 2022-07-03 21:33 | PC.NURSE ---
Blood transfusion completed at this time. Pt ambulatory to restroom with steady gait. Relates having bowel movement.
--- NOTE | 2022-07-03 22:07 | PC.NURSE ---
Pt ambulatory to restroom for bowel movement at this time.
[2022-07-03] MEDS: Pantoprazole Sodium 40 MG/10 ML VIAL 80 MG IVPUSH (22:17)
[2022-07-03] MEDS: cefTRIAXone sodium 1 GM in 0.9 % Sodium Chloride 50 ML IV (22:18)
--- NOTE | 2022-07-03 22:33 | PC.NURSE ---
Report attempted at this time.
--- NOTE | 2022-07-03 23:02 | PC.NURSE ---
Report to Felicia CARVALHO on S4.
[2022-07-03 23:23] VITALS: BP 130/76; PULSE 100; RESP 20; TEMP 36.7; O2SAT 99
[2022-07-03 23:54] LABS: Glucose, Whole Blood 327 mg/dL (60-115)
[2022-07-04] MEDS: Insulin Lispro 100 UNIT/ML 3 ML VIAL SUBCUT (00:01)
[2022-07-04] MEDS: 0.9 % Sodium Chloride Flush 3 ML SYRINGE IVFLUSH ×2 (00:01→09:47)
[2022-07-04 04:00] VITALS: BP 109/82; PULSE 100; RESP 16; TEMP 36.6; O2SAT 97
[2022-07-04 07:17] LABS: MANUAL DIFF FLAG NO
[2022-07-04 07:21] LABS: Basophils Percent Auto 0.7 % (0-2); Eosinophils Absolute Auto 0.2 X10*3/uL (0.0-0.4); Eosinophils Percent Auto 2.9 % (0-4); Hematocrit 23.2 % (42.0-52.0); Hemoglobin 7.9 g/dl (14.0-18.0); Imm Gran Abs Auto 0.03 X10*3/uL (0.00-0.03); Imm Gran Pct Auto 0.5 % (0.0-0.4); Lymphocytes Absolute Auto 1.8 X10*3/uL (1.2-4.9); Lymphocytes Percent Auto 31.9 % (20-40); Mean Corpuscular HGB Conc 34.1 g/dl (31.0-36.0); Mean Corpuscular Hemoglobin 36.1 pg (27.0-33.0); Mean Corpuscular Volume 105.9 fL (80.0-98.0); Mean Platelet Volume 10.5 fL (9.4-12.4); Monocytes Absolute Auto 0.7 X10*3/uL (0.1-1.2); Monocytes Percent Auto 11.6 % (2-11); Neutrophils Absolute Auto 2.9 x10*3/uL (2.0-8.3); Neutrophils Percent Auto 52.4 % (45-73); Red Blood Count 2.19 X10*6/uL (4.60-5.80); Red Cell Distribution Width 26.9 % (11.0-16.0); White Blood Count 5.6 X10*3/uL (4.8-10.8)
[2022-07-04 07:24] LABS: Platelet Count 68 X10*3/uL (160-400)
[2022-07-04 07:32] LABS: Ammonia 45 umol/L (13-55)
[2022-07-04 07:55] LABS: Alanine Aminotransferase 42 U/L (0-40); Albumin Level 2.4 g/dL (3.5-5.0); Alkaline Phosphatase 79 U/L (39-117); Anion Gap 12 (12-20); Aspartate Amino Transferase 81 U/L (5-37); Blood Urea Nitrogen 12 mg/dL (9-16); Calcium 8.5 mg/dL (8.4-10.2); Carbon Dioxide 20 mmol/L (22-29); Chloride 110 mmol/L (96-108); Creatinine Clr Calc Pharmacy 95.6; Estimated Glomerular Filt Rate > 60; Glucose Random 249 mg/dL (60-115); Potassium 3.5 mmol/L (3.3-5.1); Sodium 138 mmol/L (135-145); Total Protein 6.6 g/dL (6.5-8.0)
[2022-07-04 08:00] VITALS: BP 119/70; PULSE 98; RESP 17; TEMP 36.6; O2SAT 98
[2022-07-04 08:07] LABS: Glucose, Whole Blood 228 mg/dL (60-115)
[2022-07-04 09:12] LABS: Bilirubin Direct 3.3 mg/dL (0.0-0.5)
--- NOTE | 2022-07-04 09:47 | PC.NURSE ---
IV protonix and subcut insulin due at 0600 appears to not be given by previous shift nurse. Both medications noted to be taken out of the pixis this am at 0615. Documented by this RN as not given.
[2022-07-04] MEDS: Sucralfate 1 GM TABLET PO (10:40)
[2022-07-04] MEDS: Multivitamin TABLET 1 TAB PO (10:40)
[2022-07-04] MEDS: Ferrous Sulfate 324 MG TABLET.DR PO (10:40)
[2022-07-04] MEDS: SITagliptin Phosphate 50 MG TABLET PO (10:40)
[2022-07-04] MEDS: Folic Acid 1 MG TABLET PO (10:40)
[2022-07-04] MEDS: Pyridoxine HCl (Vitamin B6) 50 MG TABLET PO (10:41)
[2022-07-04] MEDS: Thiamine HCL 100 MG in 0.9 % Sodium Chloride 100 ML 202 MG IV (10:41)
[2022-07-04 11:56] LABS: Glucose, Whole Blood 246 mg/dL (60-115)
[2022-07-04 11:59] LABS: Glucose, Whole Blood 223 mg/dL (60-115)
[2022-07-04 12:00] VITALS: BP 129/75; PULSE 95; RESP 17; TEMP 36.6; O2SAT 99
--- NOTE | 2022-07-04 12:37 | HO.PM.IMPN ---
Subjective Subjective Date of Service: 07/04/22 Interval History: no complaints Physical Exam Vital Signs: Vital Signs: Last Vital Signs Temp 97.8 F 07/04/22 12:00 Pulse 95 07/04/22 12:00 Resp 17 07/04/22 12:00 BP 129/75 07/04/22 12:00 Pulse Ox 99 07/04/22 12:00 O2 Del Method Room Air 07/04/22 12:00 BMI result Body Mass Index 26.7 jaundiced, abd distended but not tender or tight Objective Data Active Medications Benzonatate (Benzonatate 100 Mg Capsule) 200 mg PO TID PRN PRN Reason: cough Ferrous Sulfate (Ferrous Sulfate 324 Mg Tablet.Dr) 324 mg PO DAILY [facility] Last Admin: 07/04/22 10:40 Dose: 324 mg Documented By: GUY Folic Acid (Folic Acid 1 Mg Tablet) 1 mg PO DAILY [facility] Last Admin: 07/04/22 10:40 Dose: 1 mg Documented By: GUY Glucose (Glucose Gel 15 Gm Gel..Gram.) 15 gm PO Q15M PRN; Protocol PRN Reason: per Hypoglycemia Standing Ord. Dextrose (D10) 250 mls @ 750 mls/hr IV Q15M PRN; Protocol PRN Reason: per Hypoglycemia Standing Ord. Thiamine HCl 100 mg/ Sodium (Chloride) 101 mls @ 202 mls/hr IV DAILY [facility] Last Infusion: 07/04/22 11:57 Dose: 0 mls/hr Documented By: GUY Ceftriaxone Sodium 1 gm/ (Sodium Chloride) 50 mls @ 100 mls/hr IV Q24H [facility] Last Infusion: 07/03/22 22:48 Dose: 0 mls/hr Documented By: HAILE Insulin Human Lispro (Insulin Lispro 100 Unit/Ml 3 Ml Vial) 0 unit SUBCUT Q6H [facility]; Protocol Last Admin: 07/04/22 09:47 Dose: Not Given Documented By: GUY Non-Admin Reason: see nursing note Lactulose (Lactulose 20 Gm/30 Ml Solution) 20 gm PO BID [facility] Last Admin: 07/04/22 10:43 Dose: Not Given Documented By: GUY Non-Admin Reason: held for diarrhea Melatonin (Melatonin 3 Mg Tablet) 6 mg PO BEDTIME PRN PRN Reason: Insomnia Multivitamins/Vitamin C (Multivitamin Tablet) 1 tab PO DAILY [facility] Last Admin: 07/04/22 10:40 Dose: 1 tab Documented By: GUY Ondansetron HCl (Ondansetron Hcl 4 Mg/2 Ml Vial) 4 mg IVPUSH Q8H PRN PRN Reason: Nausea and Vomiting Pantoprazole Sodium (Pantoprazole Sodium 40 Mg/10 Ml Vial) 40 mg IVPUSH BID@0630,1630 [facility] Last Admin: 07/04/22 09:47 Dose: Not Given Documented By: GUY Non-Admin Reason: see nursing note Pharmacy Consult (Consult Rx Perform Med Rec) 1 each MISCELLANE ONCE PRN PRN Reason: Consult order Pyridoxine HCl (Pyridoxine Hcl (Vitamin B6) 50 Mg Tablet) 50 mg PO DAILY [facility] Last Admin: 07/04/22 10:41 Dose: 50 mg Documented By: GUY Senna/Docusate Sodium (Sennosides/Docusate Sodium Tablet) 1 tab PO BID PRN PRN Reason: Constipation Sitagliptin Phosphate (Sitagliptin Phosphate 50 Mg Tablet) 50 mg PO DAILY [facility] Last Admin: 07/04/22 10:40 Dose: 50 mg Documented By: GUY Sodium Chloride (0.9 % Sodium Chloride Flush 3 Ml Syringe) 3 ml IVFLUSH QSHIFT [facility] Last Admin: 07/04/22 09:47 Dose: 3 ml Documented By: GUY Sucralfate (Sucralfate 1 Gm Tablet) 1 gm PO TID [facility] Last Admin: 07/04/22 10:40 Dose: 1 gm Documented By: GUY Labs 07/04/22 07:01 07/04/22 07:01 Labs: Laboratory Results - last 24 hr 07/03/22 07/03/22 07/03/22 15:56 15:57 16:08 MCV 108.9 H MCH 35.5 H MCHC 32.6 RDW 27.1 H Plt Count 80 L MPV 10.6 Immature Gran % (Auto) 0.6 H Neut % (Auto) 47.2 Lymph % (Auto) 37.4 [place] % (Auto) 10.6 Eos % (Auto) 3.3 Baso % (Auto) 0.9 Lymph # (Auto) 2.0 Todd # (Auto) 0.6 Eos # (Auto) 0.2 Baso # (Auto) 0.1 Abs Immat Gran (auto) 0.03 Absolute Neuts (auto) 2.5 Absolute Nucleated RBC 0.000 Nucleated RBC % (auto) 0.0 PT INR APTT Anion Gap Estim Creat Clear Calc Estimated GFR POC Glucose Random Glucose Calcium Magnesium Total Bilirubin Direct Bilirubin AST ALT Alkaline Phosphatase Ammonia 88 H Total Protein Albumin Folate Stool Occult Blood COVID-19 ([facility]AROLDO) [facility] Blood Type O Positive Antibody Screen NEGATIVE Crossmatch See Detail 07/03/22 07/03/22 07/03/22 16:49 16:49 16:49 MCV MCH MCHC RDW Plt Count MPV Immature Gran % (Auto) Neut % (Auto) Lymph % (Auto) [place] % (Auto) Eos % (Auto) Baso % (Auto) Lymph # (Auto) [place] # (Auto) Eos # (Auto) Baso # (Auto) Abs Immat Gran (auto) Absolute Neuts (auto) Absolute Nucleated RBC Nucleated RBC % (auto) PT 20.3 H INR 1.7 H APTT 36.0 Anion Gap 12 Estim Creat Clear Calc 88.8 Estimated GFR > 60 POC Glucose Random Glucose 388 H* Calcium 8.5 Magnesium 1.9 Total Bilirubin 9.5 H Direct Bilirubin 3.0 H AST 86 H ALT 43 H Alkaline Phosphatase 93 Ammonia Total Protein 6.9 Albumin 2.4 L Folate 14.4 Stool Occult Blood COVID-19 ([facility]AROLDO) Positive A [email or web address] See Note Blood Type Antibody Screen Crossmatch 07/03/22 07/03/22 07/04/22 18:00 23:50 05:59 MCV MCH MCHC RDW Plt Count MPV Immature Gran % (Auto) Neut % (Auto) Lymph % (Auto) [place] % (Auto) Eos % (Auto) Baso % (Auto) Lymph # (Auto) Todd # (Auto) Eos # (Auto) Baso # (Auto) Abs Immat Gran (auto) Absolute Neuts (auto) Absolute Nucleated RBC Nucleated RBC % (auto) PT INR APTT Anion Gap Estim Creat Clear Calc Estimated GFR POC Glucose 327 H 246 H Random Glucose Calcium Magnesium Total Bilirubin Direct Bilirubin AST ALT Alkaline Phosphatase Ammonia Total Protein Albumin Folate Stool Occult Blood POSITIVE COVID-19 (HAROLDO) COVID-[employer] [facility] [facility] Blood Type Antibody Screen Crossmatch 07/04/22 07/04/2223 07:01 07:01 07:01 MCV 105.9 H MCH 36.1 H MCHC 34.1 RDW 26.9 H Plt Count 68 L MPV 10.5 Immature Gran % (Auto) 0.5 H Neut % (Auto) 52.4 Lymph % (Auto) 31.9 Todd % (Auto) 11.6 H Eos % (Auto) 2.9 Baso % (Auto) 0.7 Lymph # (Auto) 1.8 Todd # (Auto) 0.7 Eos # (Auto) 0.2 Baso # (Auto) 0.0 Abs Immat Gran (auto) 0.03 Absolute Neuts (auto) 2.9 Absolute Nucleated RBC 0.000 Nucleated RBC % (auto) 0.0 PT INR APTT Anion Gap 12 Estim Creat Clear Calc 95.6 Estimated GFR > 60 POC Glucose Random Glucose 249 H Calcium 8.5 Magnesium Total Bilirubin 12.0 H Direct Bilirubin 3.3 H AST 81 H ALT 42 H Alkaline Phosphatase 79 Ammonia 45 Total Protein 6.6 Albumin 2.4 L Folate Stool Occult Blood COVID-19 ([facility]AROLDO) [email or web address] Blood Type Antibody Screen Crossmatch 07/04/22 07/04/22 08:01 11:48 MCV MCH MCHC RDW Plt Count MPV Immature Gran % (Auto) Neut % (Auto) Lymph % (Auto) [place] % (Auto) Eos % (Auto) Baso % (Auto) Lymph # (Auto) Todd # (Auto) Eos # (Auto) Baso # (Auto) Abs Immat Gran (auto) Absolute Neuts (auto) Absolute Nucleated RBC Nucleated RBC % (auto) PT INR APTT Anion Gap Estim Creat Clear Calc Estimated GFR POC Glucose 228 H 223 H Random Glucose Calcium Magnesium Total Bilirubin Direct Bilirubin AST ALT Alkaline Phosphatase Ammonia Total Protein Albumin Folate Stool Occult Blood COVID-19 ([facility]AROLDO) [email or web address] Blood Type Antibody Screen Crossmatch Assessment and Plan (1) Cirrhosis of liver: Status: Acute Plan 62M PMH etoh dependence with cirrhosis, DM, sent in for outpatient hgb of 7.7. chronic anemia due to chronic blood loss anemia from portal gastropathy and chronic inflammation in cirrhosis monitor cbc gi eval ppi etoh dependence with cirrhosis, ascites appears stable since [facility] admission, elevated indirect bili due to element of hemolysis no obvious acute encephalopathy continue lactulose, high protein diet, etoh absitinence DM insulin covid asymptomatic dvt prophylaxis - mechacnical due to ?bleed full code reason for continued hospitalization:gi eval Time Spent With Patient Time: Total time managing care of this patient today ____ minutes. Quality Stroke Does the patient have a stroke diagnosis?: No VTE Prior VTE?: No VTE Risk Level:: Medical - moderate - high VTE Device Contraindication: N/A - Device Ordered VTE Drug Contraindication: Treatment Not Indicated
--- NOTE | 2022-07-04 13:42 | PM.DS ---
DS: Providers Provider Date of Service: 07/04/22 Date of admission: 07/03/22 19:17 Primary care physician: Unknown Physician Consults: 07/04/22 08:36 Consult to Gastroenterology Routine Consulting Provider: Collette Sharma Reason for consultation: worsening jaundice, etoh cirrhosis DS: Diagnosis Discharge Diagnosis (1) Cirrhosis of liver: Status: Acute DS: Summary Hospital Course Hospital Course: from initial hpi: Pt is a 62-year-old male with a PMH significant for?cirrhosis, jaundice, and alcohol use disorder who presents to the ED after labs drawn by PCP showed anemia and need for blood transfusion.? Patient states that symptoms began approximately 3 weeks ago when he went to [place] to visit friends.? Patient has been a chronic heavy drinker for many years, drinking 10-15 beers daily. In [place] notes he drink even more, hitting up the [employer] bars. Said felt off the last two days, weak and fatigued, spent most of the time in his hotel room. Went to see his PCP upon getting home, and was sent via ambulance to [facility] for jaundice. Pt says he stayed at [facility] for five days and was diagnosed with cirrhosis, transfused two units of PRBC, had an EGD which cauterized some bleeding ulcers, and had fluid drawn off his liver. Pt had apparently been experiencing bright red blood per rectum for up to 6 months prior which he thought was due to hemorrhoids, even though he had never had a formal diagnosis.? Patient has also been experiencing dark stools, though he is on iron supplementation and has not experienced any bright red blood since the procedure at [facility]. Pt also developed a cough two days after leaving [facility]. In the ED patient was hypotensive at 104/58. Labs were significant for macrocytic anemia of 7.6/23.3, MCV 108.9, platelets of 80, PTT of 20.3, INR of 1.7, random glucose of 388, total bilirubin of 9.5, AST of 86, ALT 43, ammonia 88.? Stools positive for occult blood.? Patient tested positive for COVID-19.? Abdominal ultrasound showed cirrhotic liver with moderate volume of ascites and nonobstructive 0.5 cm calculus in the right kidney.? CT of chest, abdomen, and pelvis showed a cluster of ground-glass opacities in the right upper lobe that could be infectious or inflammatory, a cirrhotic appearing liver with associated splenomegaly and moderate ascites, bilateral nephrolithiasis, and colonic diverticulosis without diverticulitis. Pt was treated with lactulose, thiamine, and IVF. Pt will be admitted to the hospital for treatment of hepatic encephalopathy, acute decompensated cirrhosis, and acute GI bleed. hospital course: patient was admitted for chronic anemia due to chronic blood loss anemia from portal gastropathy and chronic inflammation and cirrhosis. He was seen by Gastroenterology recommended EGD, however, patient was not interested in doing that in patient and was to follow-up with his own direct care staffer as outpatient. He will continue on PPI. Firs alcohol dependence with cirrhosis and ascites. He will follow up with Gastroenterology as outpatient. His Ascites was not particularly tense and was negative for SBP on previous admission. he had no clear evidence of acute hepatic encephalopathy, however, he will be discharged with some lactulose for maintenance. He does have elevated indirect bilirubin likely hemolysis due to hepatitis and blood transfusion. For his diabetes is continue on insulin. For COVID he was asymptomatic. Patient is feeling better will be discharged home. Time Spent with Patient Time attestation: Total time managing care of this patient today ____ minutes. Discharge coordination time: Greater than 30 minutes Quality: Safe Use of Opioids Does Pt have an Active Cancer Diagnosis on the Problem List?: No Quality: Stroke Does the patient have a stroke diagnosis?: No Physical Exam Vital Signs: Vital Signs: Last Vital Signs Temp 97.8 F 07/04/22 12:00 Pulse 95 07/04/22 12:00 Resp 17 07/04/22 12:00 BP 129/75 07/04/22 12:00 Pulse Ox 99 07/04/22 12:00 O2 Del Method Room Air 07/04/22 12:00 BMI result Body Mass Index 26.7 jaundiced, abd distended but not tender or tight DS: Data Data Completed and Pending Labs on day of discharge: Laboratory Results - last 24 hr 07/03/22 07/03/22 07/03/22 15:56 15:57 16:08 WBC 5.4 RBC 2.14 L Hgb 7.6 L Hct 23.3 L MCV 108.9 H MCH 35.5 H MCHC 32.6 RDW 27.1 H Plt Count 80 L MPV 10.6 Immature Gran % (Auto) 0.6 H Neut % (Auto) 47.2 Lymph % (Auto) 37.4 [place] % (Auto) 10.6 Eos % (Auto) 3.3 Baso % (Auto) 0.9 Lymph # (Auto) 2.0 [place] # (Auto) 0.6 Eos # (Auto) 0.2 Baso # (Auto) 0.1 Abs Immat Gran (auto) 0.03 Absolute Neuts (auto) 2.5 Absolute Nucleated RBC 0.000 Nucleated RBC % (auto) 0.0 PT INR APTT Sodium Potassium Chloride Carbon Dioxide Anion Gap BUN Creatinine Estim Creat Clear Calc Estimated GFR POC Glucose Random Glucose Calcium Magnesium Total Bilirubin Direct Bilirubin AST ALT Alkaline Phosphatase Ammonia 88 H Total Protein Albumin Folate Stool Occult Blood COVID-19 (HAROLDO) [facility] Blood Type O Positive Antibody Screen NEGATIVE Crossmatch See Detail 07/03/22 07/03/22 07/03/22 16:49 16:49 16:49 WBC RBC Hgb Hct MCV MCH MCHC RDW Plt Count MPV Immature Gran % (Auto) Neut % (Auto) Lymph % (Auto) [place] % (Auto) Eos % (Auto) Baso % (Auto) Lymph # (Auto) [place] # (Auto) Eos # (Auto) Baso # (Auto) Abs Immat Gran (auto) Absolute Neuts (auto) Absolute Nucleated RBC Nucleated RBC % (auto) PT 20.3 H INR 1.7 H APTT 36.0 Sodium 137 Potassium 3.7 Chloride 106 Carbon Dioxide 23 Anion Gap 12 BUN 12 Creatinine 0.84 Estim Creat Clear Calc 88.8 Estimated GFR > 60 POC Glucose Random Glucose 388 H* Calcium 8.5 Magnesium 1.9 Total Bilirubin 9.5 H Direct Bilirubin 3.0 H AST 86 H ALT 43 H Alkaline Phosphatase 93 Ammonia Total Protein 6.9 Albumin 2.4 L Folate 14.4 Stool Occult Blood COVID-19 (HAROLDO) Positive A COVID-19 [employer] [facility] See Note Blood Type Antibody Screen Crossmatch 07/03/22 07/03/22 07/04/22 18:00 23:50 05:59 WBC RBC Hgb Hct MCV MCH MCHC RDW Plt Count MPV Immature Gran % (Auto) Neut % (Auto) Lymph % (Auto) [place] % (Auto) Eos % (Auto) Baso % (Auto) Lymph # (Auto) [place] # (Auto) Eos # (Auto) Baso # (Auto) Abs Immat Gran (auto) Absolute Neuts (auto) Absolute Nucleated RBC Nucleated RBC % (auto) PT INR APTT Sodium Potassium Chloride Carbon Dioxide Anion Gap BUN Creatinine Estim Creat Clear Calc Estimated GFR POC Glucose 327 H 246 H Random Glucose Calcium Magnesium Total Bilirubin Direct Bilirubin AST ALT Alkaline Phosphatase Ammonia Total Protein Albumin Folate Stool Occult Blood POSITIVE COVID-19 (HAROLOD) COVID-19 [facility] Blood Type Antibody Screen Crossmatch 07/04/22 07/04/22 07/04/22 07:01 07:01 07:01 WBC 5.6 RBC 2.19 L Hgb 7.9 L Hct 23.2 L MCV 105.9 H MCH 36.1 H MCHC 34.1 RDW 26.9 H Plt Count 68 L MPV 10.5 Immature Gran % (Auto) 0.5 H Neut % (Auto) 52.4 Lymph % (Auto) 31.9 [place] % (Auto) 11.6 H Eos % (Auto) 2.9 Baso % (Auto) 0.7 Lymph # (Auto) 1.8 [place] # (Auto) 0.7 Eos # (Auto) 0.2 Baso # (Auto) 0.0 Abs Immat Gran (auto) 0.03 Absolute Neuts (auto) 2.9 Absolute Nucleated RBC 0.000 Nucleated RBC % (auto) 0.0 PT INR APTT Sodium 138 Potassium 3.5 Chloride 110 H Carbon Dioxide 20 L Anion Gap 12 BUN 12 Creatinine 0.78 Estim Creat Clear Calc 95.6 Estimated GFR > 60 POC Glucose Random Glucose 249 H Calcium 8.5 Magnesium Total Bilirubin 12.0 H Direct Bilirubin 3.3 H AST 81 H ALT 42 H Alkaline Phosphatase 79 Ammonia 45 Total Protein 6.6 Albumin 2.4 L Folate Stool Occult Blood COVID-19 (HAROLDO) COVID-19 [facility] Blood Type Antibody Screen Crossmatch 07/04/22 07/04/22 08:01 11:48 WBC RBC Hgb Hct MCV MCH MCHC RDW Plt Count MPV Immature Gran % (Auto) Neut % (Auto) Lymph % (Auto) [place] % (Auto) Eos % (Auto) Baso % (Auto) Lymph # (Auto) [place] # (Auto) Eos # (Auto) Baso # (Auto) Abs Immat Gran (auto) Absolute Neuts (auto) Absolute Nucleated RBC Nucleated RBC % (auto) PT INR APTT Sodium Potassium Chloride Carbon Dioxide Anion Gap BUN Creatinine Estim Creat Clear Calc Estimated GFR POC Glucose 228 H 223 H Random Glucose Calcium Magnesium Total Bilirubin Direct Bilirubin AST ALT Alkaline Phosphatase Ammonia Total Protein Albumin Folate Stool Occult Blood COVID-19 ([facility]AROLDO) COVID-19 Clin Com Blood Type Antibody Screen Crossmatch Discharge Plan Discharge Anticipated Discharge Date/Time: 07/04/22 13:32 Patient Disposition: Home, Self-Care Discharge Diagnosis: anemia Referrals: Physician,Unknown J [Primary Care Provider] - 1 Week Discharge Medications: New lactulose 20 gram/30 mL Solution 20 g PO BID 30 Days Qty: 1800 0RF Continued sucralfate 1 gram tablet 1 g PO TID pantoprazole 40 mg tablet,delayed release (DR/EC) 40 mg PO Q12H folic acid 1 mg tablet 1 mg PO DAILY polyethylene glycol 3350 [ClearLax] 17 gram/dose powder 17 g PO DAILY Januvia 50 mg tablet 50 mg PO DAILY sennosides-docusate sodium 8.6-50 mg Tablet 1 tab-cap PO BID PRN (Reason: Constipation) thiamine HCl (vitamin B1) 100 mg Tablet 100 mg PO DAILY ferrous sulfate 325 mg (65 mg iron) Tablet 325 mg PO DAILY pyridoxine (vitamin B6) 50 mg Tablet 50 mg PO DAILY multivitamin Tablet 1 tab PO DAILY Discontinued metronidazole 500 mg tablet 500 mg PO Q8H levofloxacin 500 mg tablet 500 mg PO DAILY Discharge Orders: Discharge Order (Routine); Ordered 07/04/22 Ordered By: Wayne Joseph Diet: Advance to usual diet Activity on Discharge: As tolerated Stand Alone Forms: Patient Portal Discharge page Care Plan Goals: manage cirrhosis Health Concerns: cirrhosis Plan of Treatment: would use lactulose for maintenance, follow up with gi Assessment: see above Discharge Date/Time: 07/04/22 16:24
--- NOTE | 2022-07-04 16:38 | P.CNGI_ITS ---
History of Present Illness Data of Consult Service Date: 07/04/22 Requesting physician: Wayne Joseph Primary Care Provider: Unknown Physician HPI Reason for consult: anemia, cirrhosis 62-year-old male with a PMH significant for?cirrhosis, jaundice, and alcohol abuse who I am seeing for assessment for anemia. Pt had labs checked by PCP who advised him to come in due to anemia. He was in [facility] just recently due to jaundice suspected due to alcohol liver injury and cirrhosis. His HGb is similar to what it was on d/c from there on review with Dr Wilson. He says he feels well and has no complaints although he did notice some rectal bleeding with darker stools. At [facility] he did have an EGD and had GAVE which was treated. DiD not require variceal banding. He has not touched alcohol for 2 weeks. In the ED patient was hypotensive at 104/58. Labs were significant for macrocytic anemia of 7.6/23.3, MCV 108.9, platelets of 80, PTT of 20.3, INR of 1.7, random glucose of 388, total bilirubin of 9.5, AST of 86, ALT 43, ammonia 88.? Stools positive for occult blood.? Patient tested positive for COVID-19.? Abdominal ultrasound: cirrhotic liver with moderate volume of ascites and nonobstructive 0.5 cm calculus in the right kidney.? CT of chest, abdomen, and pelvis showed a cluster of ground-glass opacities in the right upper lobe that could be infectious or inflammatory, a cirrhotic appearing liver with associated splenomegaly and moderate ascites, bilateral nephrolithiasis, and colonic diverticulosis without diverticulitis. Review of Systems Review of Systems: Constitutional : No Weight loss, No Fever, No Chills ENT/Mouth : No sore throat, No Rhinorrhea Eyes: No Swelling, No Redness Cardiovascular : No Chest Pain, No SOB, No Edema Respiratory : No Cough, No Sputum, No Wheezing Gastrointestinal : see HPI Genitourinary : NO Dysuria, No Urinary Frequency, No Hematuria, No Urgency Musculoskeletal : No joint pain, No Myalgias, No Joint Swelling Skin : No Skin Lesions, No rash Neuro : No Weakness, No Numbness, No Dizziness, No Headache Psych : No Anxiety/Panic, No Depression Heme/Lymph: No Bruising, No Lymphadenopathy Endocrine : No Polyuria, No Polydipsia All other systems reviewed and are negative. PMFSH Family History Pertinent family history: no fh of cirrhosis Social History Social History Household Members: Spouse Housing: House Do you presently have visiting nurse or other home services: No Patient Tobacco Use Status: Never used Tobacco Meds Allergies Allergy/AdvReac Type Severity Reaction Status Date / Time No Known Allergies Allergy Verified 07/03/22 15:25 Home Medications Medication Instructions Recorded Confirmed Last Taken Type ferrous sulfate 325 mg (65 mg 325 mg PO DAILY 07/03/22 07/03/22 Unknown History iron) tablet folic acid 1 mg tablet 1 mg PO DAILY 07/03/22 07/03/22 Unknown History multivitamin 1 tab PO DAILY 07/03/22 07/03/22 Unknown History pantoprazole 40 mg tablet,delayed 40 mg PO Q12H 07/03/22 07/03/22 Unknown History release polyethylene glycol 3350 17 17 g PO DAILY 07/03/22 07/03/22 Unknown History gram/dose oral powder (ClearLax) pyridoxine (vitamin B6) 50 mg 50 mg PO DAILY 07/03/22 07/03/22 Unknown History tablet sennosides 8.6 mg-docusate sodium 1 tab-cap PO BID PRN Constipation 07/03/22 07/03/22 Unknown History 50 mg tablet sitagliptin phosphate 50 mg tablet 50 mg PO DAILY 07/03/22 07/03/22 Unknown History (Jorden) sucralfate 1 gram tablet 1 g PO TID 07/03/22 07/03/22 Unknown History thiamine HCl (vitamin B1) 100 mg 100 mg PO DAILY 07/03/22 07/03/22 Unknown History tablet Physical Exam Vital Signs: Vital Signs: Last Vital Signs Temp 97.8 F 07/04/22 12:00 Pulse 95 07/04/22 12:00 Resp 17 07/04/22 12:00 BP 129/75 07/04/22 12:00 Pulse Ox 99 07/04/22 12:00 O2 Del Method Room Air 07/04/22 12:00 BMI result Body Mass Index 26.7 EXAM: GENERAL: The patient is relaxed, no confusion or tremors, jaundiced VITAL SIGNS:see workflow HEENT: icteric sclerae, PERRLA, EOMI. Oropharynx clear. Moist mucous membranes. Conjunctivae appear pale. No thyroid mass. CHEST: Chest wall is nontender. HEART: Regular rate and rhythm without murmurs. LUNGS: Clear to auscultation bilaterally. ABDOMEN: Soft, positive bowel sounds, nontender, no organomegaly.no flank tenderness SKIN: No rash, no excessive bruising, petechiae, or purpura. NEUROLOGIC: Cranial nerves II-XII intact without motor/sensory deficit. Psych-nml affect Results Labs 07/04/22 07:01 07/04/22 07:01 Labs: Short CBC 07/03/22 07/04/22 Range/Units 16:08 07:01 WBC 5.6 (4.8-10.8) X10*3/uL Hgb 7.9 L (14.0-18.0) g/dl Hct 23.2 L (42.0-52.0) % Plt Count 80 L 68 L (160-400) X10*3/uL BMP 07/03/22 07/04/22 16:49 07:01 Sodium 137 138 Potassium 3.7 3.5 Chloride 106 110 H Carbon Dioxide 23 20 L BUN 12 12 Creatinine 0.84 0.78 Calcium 8.5 8.5 Liver Function 07/03/22 07/04/22 Range/Units 16:49 07:01 Total Bilirubin 9.5 H 12.0 H (0.0-1.0) mg/dL Direct Bilirubin 3.0 H 3.3 H (0.0-0.5) mg/dL AST 86 H 81 H (5-37) U/L ALT 43 H 42 H (0-40) U/L Alkaline Phosphatase 93 79 (39-117) U/L Albumin 2.4 L 2.4 L (3.5-5.0) g/dL Assessment and Plan (1) Cirrhosis of liver: Status: Acute (2) Anemia: Status: Acute Plan 1/ Chronically stable anemia with recent EGD at [facility]. Might have lower or upper GI bleeding foci, or ulcertion from recent APC 2/ jaundice, worsening bili mostly indirect may have zhieve syndrome from alcoho lic hepatitis PLAN: 1/ Advised on EGD reassessment and colonoscopy, patient declined and stated he has an apptm at [facility] next week and wishes to follow up there 2/ can d/c on carafate 1 g bid and low dose PPI / transfuse with target HGB no more than 8 g/dl 4/ avoid nsaids, aspirin Time Spent With Patient Time: Total time managing care of this patient today ____ minutes. Procedures Date of Service Date of Service: 07/04/22
== END 2022-07-04 16:24 | disposition home or self-care (01) | DRG 432 ==
LOC: HO.ED 19:06 → HO.EDOVER 19:50 → HO.IMC 21:53
PROVIDERS: Physician Assistant; Physician Assistant Medical; Admitting Provider Student in an Organized Health Care Education/Training Program; Emergency Provider Emergency Medicine; Visit Provider Internal Medicine
DX: K70.31 Alcoholic cirrhosis of liver with ascites (principal); U07.1 COVID-19; K76.6 Portal hypertension; K57.30 Diverticulosis of large intestine without perforation or abscess without bleeding; N20.0 Calculus of kidney; F10.20 Alcohol dependence, uncomplicated; K31.89 Other diseases of stomach and duodenum; D50.0 Iron deficiency anemia secondary to blood loss (chronic); E11.9 Type 2 diabetes mellitus without complications; I95.9 Hypotension, unspecified; Z79.899 Other long term (current) drug therapy
CPT/HCPCS: 36415; 71260; 74177; 76705; 80053; 82140; 82248; 82272; 82746; 82947; 83735; 85025; 85610; 85730; 86850; 86900; 86901; 86923; 87635; 99285; J0696; J3411; P9016; Q9967